=== PATIENT | female | born 1945 | race Caucasian/White ===

== ENCOUNTER 2017-07-30 16:47 | Inpatient (IN) | payer MEDICARE ==
[~2017-07-30] VITALS: Ht 177.8 cm; Wt 70.9 kg
[~2017-07-30 16:47] MED LIST: LIDOcaine 2% (20 mg/ml) 5ml cardiac syringe ONE; MAGNESIUM SULFATE 4 MEQ/ML (1gm/2ml) injection ONE; albumin (human) 25% 100 ML IV solution IV ONE; calcium chloride 100 MG/1 ML inj IV ONE; heparin 1,000 units/ml 10ml inj ONE; heparin 10,000 units/1 ML INJ ONE; methylPREDNISolone sod. succ. 500mg inj ONE; phenylephrine 10mg/ml inj IV ONE; potassium acetate 2 mEq/1ml inj. IV ONE; sodium bicarbonate (8.4%) 1 mEq/ml syringe ONE
[2017-07-30 17:00] VITALS: BP 129/76
[2017-07-30 18:23] LABS: HEMATOCRIT 30.7 % (35.0-45.0); MEAN CORPUSCULAR HEMOGLOBIN 24.1 PG (27.0-31.0); MEAN CORPUSCULAR HGB CONC 32.6 % (33.0-36.5); MEAN CORPUSCULAR VOLUME 74.1 FL (78-98); MEAN PLATELET VOLUME 7.1 FL (7.4-10.4); PLATELET COUNT 343 X10'3 (140-440); RED BLOOD COUNT 4.14 X10'6 (4.20-5.60); WHITE BLOOD COUNT 11.4 X10'3 (4.5-11.0)
[2017-07-30 18:33] LABS: INR 1.1 INR; PARTIAL THROMBOPLASTIN TIME 34 SECONDS (22-32); PROTHROMBIN TIME 11.7 SECONDS (9.0-12.0)
[2017-07-30 18:38] LABS: ALANINE AMINOTRANSFERASE 23 U/L (12-78); ALBUMIN 1.9 G/DL (3.4-5.0); ALBUMIN/GLOBULIN RATIO 0.4 (1.1-1.5); ALKALINE PHOSPHATASE 99 IU/L (46-116); ANION GAP 8 (8-16); ASPARTATE AMINO TRANSFERASE 19 U/L (10-37); BILIRUBIN,TOTAL 0.3 MG/DL (0.1-1.0); BLOOD UREA NITROGEN 8 MG/DL (7-18); BUN/CREATININE RATIO 11.1 (6.6-38.0); CALCIUM 8.5 MG/DL (8.5-10.1); CHLORIDE 104 MMOL/L (99-107); CREATININE 0.72 MG/DL (0.40-0.90); GLUCOSE 93 MG/DL (70-104); POTASSIUM 3.5 MMOL/L (3.5-5.1); SODIUM 139 MMOL/L (135-145); TOTAL CARBON DIOXIDE 26.6 MMOL/L (24-32); TOTAL PROTEIN 6.5 G/DL (6.4-8.2); eGFR 80 ML/MIN
[2017-07-30 18:39] LABS: HEMOGLOBIN A1C 5.9 % (4.5-6.2)
[2017-07-30 19:00] VITALS: BP 128/70
[2017-07-30] MEDS ORDERED: DOXY-200 PO (22:09)
[2017-07-30] MEDS ORDERED: LEVO750T21 PO (22:09)
[2017-07-30] MEDS ORDERED: TRIA1TAB3 PO (22:15)
[2017-07-30] MEDS ORDERED: METO-384 PO (22:15)
[2017-07-30] MEDS ORDERED: diphenhydrAMINE 25mg capsule PO PRN (22:50)
[2017-07-30] MEDS ORDERED: acetaminophen 650mg rectal suppository RC PRN (22:50)
[2017-07-30] MEDS ORDERED: metoclopramide 5 mg/ml inj IV PRN (22:50)
[2017-07-30] MEDS ORDERED: bisacodyl 10mg suppository rectal RC PRN (22:50)
[2017-07-30] MEDS ORDERED: diphenhydrAMINE 50 mg/ml inj IV PRN (22:50)
[2017-07-30] MEDS ORDERED: morphine 4 MG/ML inj SYRINge IV PRN (22:50)
[2017-07-30] MEDS ORDERED: HYDROmorphone inj. 0.5 MG/0.5 ML DISP.SYRIN IV PRN ×2 (22:50)
[2017-07-30] MEDS ORDERED: ondansetron/PF 4mg/2ml inj IV PRN (22:50)
[2017-07-30] MEDS ORDERED: magnesium hydroxide 30ml (MOM) UD suspension PO PRN (22:50)
[2017-07-30] MEDS ORDERED: acetaminophen 325mg tablet PO PRN ×2 (22:50)
[2017-07-30] MEDS ORDERED: HYDROcodone/acetaminophen 10/325mg tab PO PRN (22:50)
[2017-07-30] MEDS ORDERED: mag hydrox/Alum hydrox/simeth 30ml oral suspension PO PRN (22:50)
[2017-07-30 23:00] VITALS: BP 145/71
[2017-07-30] MEDS: normal saline 1000ml 1,000 ML IV SCH (23:49)
[2017-07-30] MEDS: azithromycin/NS 500mg/250ml 250 ML IV SCH (23:50)
[2017-07-30] MEDS: CefTRIAXone/D5W-Rocephin 1gm 50 ML IV SCH (23:51)
[2017-07-31] VITALS (11 sets, daily range): BP systolic 96–140; BP diastolic 48–88
[2017-07-31 00:11] LABS: MAGNESIUM 1.7 MG/DL (1.5-2.4); PHOSPHORUS 2.5 MG/DL (2.3-4.5)
[2017-07-31 06:35] LABS: BASOPHILS % (AUTO) 0.3 % (0-1); EOSINOPHILS # (AUTO) 0.2 X10'3 (0-0.9); EOSINOPHILS % (AUTO) 2.3 % (0-6); HEMATOCRIT 28.4 % (35.0-45.0); HEMOGLOBIN 9.4 g/dl (12.0-16.0); LYMPHOCYTES # (AUTO) 1.4 X10'3 (1.1-4.8); LYMPHOCYTES % (AUTO) 13.3 % (21-51); MEAN CORPUSCULAR HEMOGLOBIN 24.5 PG (27.0-31.0); MEAN CORPUSCULAR HGB CONC 33.1 % (33.0-36.5); MEAN CORPUSCULAR VOLUME 74.1 FL (78-98); MEAN PLATELET VOLUME 7.3 FL (7.4-10.4); MONOCYTES # (AUTO) 0.8 X10'3 (0-0.9); MONOCYTES % (AUTO) 7.7 % (2-12); NEUTROPHILS # (AUTO) 8.2 X10'3 (1.8-7.7); NEUTROPHILS % (AUTO) 76.4 % (42-75); PLATELET COUNT 325 X10'3 (140-440); RED BLOOD COUNT 3.83 X10'6 (4.20-5.60); RED CELL DISTRIBUTION WIDTH 23.9 % (11.5-14.5); WHITE BLOOD COUNT 10.8 X10'3 (4.5-11.0)
[2017-07-31 07:07] LABS: ALANINE AMINOTRANSFERASE 24 U/L (12-78); ALBUMIN 1.8 G/DL (3.4-5.0); ALBUMIN/GLOBULIN RATIO 0.4 (1.1-1.5); ALKALINE PHOSPHATASE 83 IU/L (46-116); ANION GAP 8 (8-16); ASPARTATE AMINO TRANSFERASE 20 U/L (10-37); BILIRUBIN,TOTAL 0.3 MG/DL (0.1-1.0); BLOOD UREA NITROGEN 11 MG/DL (7-18); BUN/CREATININE RATIO 17.2 (6.6-38.0); CALCIUM 8.3 MG/DL (8.5-10.1); CHLORIDE 106 MMOL/L (99-107); CREATININE 0.64 MG/DL (0.40-0.90); GLUCOSE 89 MG/DL (70-104); POTASSIUM 3.3 MMOL/L (3.5-5.1); SODIUM 140 MMOL/L (135-145); TOTAL CARBON DIOXIDE 26.3 MMOL/L (24-32); TOTAL PROTEIN 6.4 G/DL (6.4-8.2); eGFR > 90 ML/MIN
[2017-07-31] MEDS: CefTRIAXone/D5W-Rocephin 1gm 50 ML IV SCH ×2 (07:09→19:18)
[2017-07-31] MEDS: pantoprazole 40 MG vial IV SCH (07:09)
[2017-07-31] MEDS: metoprolol succinate 25mg (24-HOUR) SR. Tablet PO SCH (07:09)
[2017-07-31] MEDS: heparin, porcine 5000 units/ml vial SQ SCH ×2 (08:00→19:18)
[2017-07-31] MEDS: docusate sod 100mg capsule PO SCH ×2 (08:00→19:16)
[2017-07-31] MEDS ORDERED: magnesium 4gm in 100ml NS 100 ML IV PRN (08:35)
[2017-07-31] MEDS ORDERED: magnesium Cl slow-release 64mg tablet PO PRN (08:35)
[2017-07-31] MEDS ORDERED: potassium Cl 40MEQ/NS 500ml 500 ML IV PRN ×2 (08:35)
[2017-07-31] MEDS ORDERED: magnesium 2GM in 50ml NS 50 ML IV PRN (08:35)
[2017-07-31] MEDS ORDERED: potassium Cl 20 mEq SR tablet PO PRN (08:35)
[2017-07-31] MEDS: normal saline 1000ml 1,000 ML IV SCH (08:57)
[2017-07-31] MEDS ORDERED: albuterol 2.5 MG/3 ML nebule NEB ONE (12:35)
[2017-07-31] MEDS ORDERED: albuterol 2.5 MG/3 ML nebule ONE (12:41)
[2017-07-31] MEDS ORDERED: heparin 1,000 UNITS/NS 500ml 500 ML ONE (13:41)
[2017-07-31] MEDS ORDERED: iohexol 350MG/ML 100ml bottle IV ONE (13:41)
[2017-07-31] MEDS ORDERED: nitroGLYCERIN-Tridil 50MG/D5W 250 ML IV ONE (13:41)
[2017-07-31] MEDS ORDERED: heparin 1,000unit/ml 10ml vial 10 ML ONE (13:41)
[2017-07-31] MEDS ORDERED: LIDOcaine 1%/PF (10mg/ml) 5ml vial ONE (13:41)
[2017-07-31] MEDS ORDERED: iohexol 350 MG/ML 50ML vial IV ONE (13:41)
[2017-07-31] MEDS ORDERED: midazolam 2 mg/2 ml injection ONE (14:05)
[2017-07-31] MEDS ORDERED: fentaNYL/PF 50MCG/1 ML 2ML syringe ONE (14:06)
[2017-07-31] MEDS ORDERED: normal saline 1000ml 1,000 ML IV SCH (16:37)
[2017-07-31] MEDS: HYDROcodone/acetaminophen 5mg/325mg tablet PO PRN (16:43)
[2017-07-31] MEDS: potassium Cl 20 mEq SR tablet PO PRN (19:16)
[2017-07-31] MEDS: azithromycin/NS 500mg/250ml 250 ML IV SCH (21:18)
[2017-07-31] MEDS: temazepam 15mg capsule PO PRN (21:42)
[2017-08-01 06:00] VITALS: BP 141/79
[2017-08-01 06:08] LABS: BASOPHILS % (AUTO) 0.2 % (0-1); EOSINOPHILS # (AUTO) 0.3 X10'3 (0-0.9); EOSINOPHILS % (AUTO) 2.6 % (0-6); HEMATOCRIT 29.7 % (35.0-45.0); HEMOGLOBIN 9.7 g/dl (12.0-16.0); LYMPHOCYTES # (AUTO) 1.2 X10'3 (1.1-4.8); LYMPHOCYTES % (AUTO) 10.9 % (21-51); MEAN CORPUSCULAR HEMOGLOBIN 24.4 PG (27.0-31.0); MEAN CORPUSCULAR HGB CONC 32.5 % (33.0-36.5); MEAN CORPUSCULAR VOLUME 74.9 FL (78-98); MONOCYTES # (AUTO) 0.8 X10'3 (0-0.9); MONOCYTES % (AUTO) 7.1 % (2-12); NEUTROPHILS # (AUTO) 8.7 X10'3 (1.8-7.7); NEUTROPHILS % (AUTO) 79.2 % (42-75); PLATELET COUNT 343 X10'3 (140-440); RED BLOOD COUNT 3.97 X10'6 (4.20-5.60)
[2017-08-01 06:27] LABS: ALANINE AMINOTRANSFERASE 25 U/L (12-78); ALBUMIN 1.8 G/DL (3.4-5.0); ALBUMIN/GLOBULIN RATIO 0.4 (1.1-1.5); ALKALINE PHOSPHATASE 83 IU/L (46-116); ANION GAP 9 (8-16); ASPARTATE AMINO TRANSFERASE 17 U/L (10-37); BILIRUBIN,TOTAL 0.4 MG/DL (0.1-1.0); BLOOD UREA NITROGEN 10 MG/DL (7-18); BUN/CREATININE RATIO 14.5 (6.6-38.0); CALCIUM 8.7 MG/DL (8.5-10.1); CHLORIDE 107 MMOL/L (99-107); CREATININE 0.69 MG/DL (0.40-0.90); GLUCOSE 83 MG/DL (70-104); MAGNESIUM 1.7 MG/DL (1.5-2.4); POTASSIUM 3.5 MMOL/L (3.5-5.1); SODIUM 142 MMOL/L (135-145); TOTAL CARBON DIOXIDE 25.7 MMOL/L (24-32); TOTAL PROTEIN 6.5 G/DL (6.4-8.2); eGFR 84 ML/MIN
[2017-08-01] MEDS: pantoprazole 40 MG vial IV SCH (07:42)
[2017-08-01] MEDS: docusate sod 100mg capsule PO SCH ×2 (07:42→20:04)
[2017-08-01] MEDS: metoprolol succinate 25mg (24-HOUR) SR. Tablet PO SCH (07:42)
[2017-08-01] MEDS: CefTRIAXone/D5W-Rocephin 1gm 50 ML IV SCH ×2 (07:42→20:06)
[2017-08-01] MEDS: heparin, porcine 5000 units/ml vial SQ SCH ×2 (07:44→20:05)
[2017-08-01 11:00] VITALS: BP 145/83
[2017-08-01] MEDS ORDERED: ringers solution, lacted 1,000 ML IV ONE (11:37)
[2017-08-01 15:00] VITALS: BP 144/75
[2017-08-01] MEDS: azithromycin 250mg tablet PO SCH (17:21)
[2017-08-01 19:00] VITALS: BP 147/84
[2017-08-01] MEDS: lactobacillus rhamnosus 10,000 MMU CELLS/CAPSULE PO SCH (20:04)
[2017-08-01] MEDS: temazepam 15mg capsule PO PRN (20:11)
[2017-08-01 23:00] VITALS: BP 139/52
[2017-08-02] VITALS (7 sets, daily range): BP systolic 135–156; BP diastolic 74–83
[2017-08-02 05:38] LABS: BASOPHILS # (AUTO) 0.1 X10'3 (0-0.2); BASOPHILS % (AUTO) 0.5 % (0-1); EOSINOPHILS # (AUTO) 0.3 X10'3 (0-0.9); EOSINOPHILS % (AUTO) 2.6 % (0-6); HEMATOCRIT 29.1 % (35.0-45.0); HEMOGLOBIN 9.7 g/dl (12.0-16.0); LYMPHOCYTES # (AUTO) 1.7 X10'3 (1.1-4.8); MEAN CORPUSCULAR HEMOGLOBIN 24.7 PG (27.0-31.0); MEAN CORPUSCULAR HGB CONC 33.3 % (33.0-36.5); MEAN CORPUSCULAR VOLUME 74.1 FL (78-98); MEAN PLATELET VOLUME 7.5 FL (7.4-10.4); MONOCYTES # (AUTO) 0.7 X10'3 (0-0.9); MONOCYTES % (AUTO) 5.5 % (2-12); NEUTROPHILS # (AUTO) 9.4 X10'3 (1.8-7.7); NEUTROPHILS % (AUTO) 77.4 % (42-75); PLATELET COUNT 389 X10'3 (140-440); RED BLOOD COUNT 3.93 X10'6 (4.20-5.60); RED CELL DISTRIBUTION WIDTH 23.7 % (11.5-14.5); WHITE BLOOD COUNT 12.2 X10'3 (4.5-11.0)
[2017-08-02 05:51] LABS: ALANINE AMINOTRANSFERASE 24 U/L (12-78); ALBUMIN 1.9 G/DL (3.4-5.0); ALBUMIN/GLOBULIN RATIO 0.4 (1.1-1.5); ALKALINE PHOSPHATASE 88 IU/L (46-116); ANION GAP 9 (8-16); ASPARTATE AMINO TRANSFERASE 19 U/L (10-37); BILIRUBIN,TOTAL 0.4 MG/DL (0.1-1.0); BLOOD UREA NITROGEN 11 MG/DL (7-18); BUN/CREATININE RATIO 15.5 (6.6-38.0); CALCIUM 8.8 MG/DL (8.5-10.1); CHLORIDE 106 MMOL/L (99-107); CREATININE 0.71 MG/DL (0.40-0.90); GLUCOSE 84 MG/DL (70-104); MAGNESIUM 1.8 MG/DL (1.5-2.4); POTASSIUM 3.2 MMOL/L (3.5-5.1); SODIUM 143 MMOL/L (135-145); TOTAL CARBON DIOXIDE 28.5 MMOL/L (24-32); TOTAL PROTEIN 6.7 G/DL (6.4-8.2); eGFR 81 ML/MIN
[2017-08-02] MEDS: lactobacillus rhamnosus 10,000 MMU CELLS/CAPSULE PO SCH ×2 (07:41→20:22)
[2017-08-02] MEDS: potassium Cl 20 mEq SR tablet PO PRN ×3 (07:42→20:39)
[2017-08-02] MEDS: metoprolol succinate 25mg (24-HOUR) SR. Tablet PO SCH (07:42)
[2017-08-02] MEDS: pantoprazole 40mg Tablet.DR PO SCH (07:42)
[2017-08-02] MEDS: docusate sod 100mg capsule PO SCH ×2 (07:42→20:22)
[2017-08-02] MEDS: azithromycin 250mg tablet PO SCH (07:42)
[2017-08-02] MEDS: CefTRIAXone/D5W-Rocephin 1gm 50 ML IV SCH ×2 (07:42→20:22)
[2017-08-02] MEDS: heparin, porcine 5000 units/ml vial SQ SCH (08:00)
[2017-08-02 08:36] LABS: CLARITY,URINE CLEAR (Clear); COLOR,URINE YELLOW (Yellow); GLUCOSE, URINE NEGATIVE (Neg); KETONES,URINE NEGATIVE (Neg); LEUKOCYTE ESTERASE ,URINE NEGATIVE (Neg); NITRITES, URINE NEGATIVE (Neg); OCCULT BLOOD,URINE SMALL (Neg); PH,URINE 6.5 (4.8-8.0); PROTEIN,URINE TRACE mg/dl (Neg); UROBILINOGEN,URINE 0.2 E.U/dL (0.2-1.0)
[2017-08-02 08:40] LABS: UA COLLECTION TYPE VOIDED
[2017-08-02 08:41] LABS: BACTERIA,URINE FEW /HPF (Neg); SQUAMOUS EPITHELIAL CELL,UR FEW /LPF (FEW); WBC,URINE 0-4 /HPF (0-4)
[2017-08-02] MEDS ORDERED: ringers solution, lacted 1,000 ML IV SCH (10:27)
[2017-08-02] MEDS ORDERED: MESSAGE TO NURSING PO ONE ×3 (10:30)
[2017-08-02 16:56] LABS: ABG BASE EXCESS -0.4 mmol/L (-2.0-3.0); ABG HCO3 22.2 mmol/L (22.0-26.0); ABG PCO2 (T) 29.5 mmHg (32.0-45.0); ABG PH (T) 7.494 (7.350-7.450); ABG PO2 (T) 82.2 mmHg (83-108); ALLEN'S TEST Positive; FCOHb 0.5 % (0.5-1.5); FMetHb 0.3 % (0.3-1.12); FO2Hb 95.2 % (94-100); TOTAL HEMOGLOBIN 10.6 G/dl (12.0-16.0)
[2017-08-02] MEDS: mupirocin 2% ointment 22GM NS SCH (20:23)
[2017-08-03] VITALS (20 sets, daily range): BP systolic 106–164; BP diastolic 52–81
[2017-08-03 05:29] LABS: BASOPHILS % (AUTO) 0.4 % (0-1); EOSINOPHILS # (AUTO) 0.3 X10'3 (0-0.9); EOSINOPHILS % (AUTO) 2.8 % (0-6); HEMATOCRIT 31.9 % (35.0-45.0); HEMOGLOBIN 10.4 g/dl (12.0-16.0); LYMPHOCYTES # (AUTO) 1.6 X10'3 (1.1-4.8); LYMPHOCYTES % (AUTO) 13.1 % (21-51); MEAN CORPUSCULAR HEMOGLOBIN 24.7 PG (27.0-31.0); MEAN CORPUSCULAR HGB CONC 32.7 % (33.0-36.5); MEAN CORPUSCULAR VOLUME 75.6 FL (78-98); MEAN PLATELET VOLUME 6.9 FL (7.4-10.4); MONOCYTES # (AUTO) 0.8 X10'3 (0-0.9); MONOCYTES % (AUTO) 6.9 % (2-12); NEUTROPHILS # (AUTO) 9.1 X10'3 (1.8-7.7); NEUTROPHILS % (AUTO) 76.8 % (42-75); PLATELET COUNT 461 X10'3 (140-440); RED BLOOD COUNT 4.22 X10'6 (4.20-5.60); WHITE BLOOD COUNT 11.9 X10'3 (4.5-11.0)
[2017-08-03] MEDS ORDERED: vancomycin/NS 1 GM ADD-VANTAGE 250 ML IV ONE (05:30)
[2017-08-03] MEDS ORDERED: cefazolin/dext.iso 2gm/50ml 50 ML IV ONE (05:30)
[2017-08-03] MEDS ORDERED: dextrose 50%-water 50ml dispensing syringe IV PRN (05:30)
[2017-08-03] MEDS ORDERED: insulin R INFUSION 1 ML IV ONE (05:33)
[2017-08-03 05:43] LABS: INR 1.1 INR; PROTHROMBIN TIME 11.6 SECONDS (9.0-12.0)
[2017-08-03] MEDS ORDERED: famotidine 20mg tablet PO ONE ×2 (06:00→06:40)
[2017-08-03] MEDS ORDERED: LORazepam 2 mg/ml vial IV ONE (06:00)
[2017-08-03 06:13] LABS: ALANINE AMINOTRANSFERASE 22 U/L (12-78); ALBUMIN/GLOBULIN RATIO 0.4 (1.1-1.5); ALKALINE PHOSPHATASE 91 IU/L (46-116); ANION GAP 9 (8-16); ASPARTATE AMINO TRANSFERASE 18 U/L (10-37); BILIRUBIN,TOTAL 0.5 MG/DL (0.1-1.0); BLOOD UREA NITROGEN 8 MG/DL (7-18); BUN/CREATININE RATIO 11.8 (6.6-38.0); CALCIUM 9.4 MG/DL (8.5-10.1); CHLORIDE 107 MMOL/L (99-107); CREATININE 0.68 MG/DL (0.40-0.90); GLUCOSE 87 MG/DL (70-104); MAGNESIUM 1.9 MG/DL (1.5-2.4); POTASSIUM 3.7 MMOL/L (3.5-5.1); SODIUM 143 MMOL/L (135-145); TOTAL CARBON DIOXIDE 26.6 MMOL/L (24-32); TOTAL PROTEIN 7.1 G/DL (6.4-8.2); eGFR 86 ML/MIN
[2017-08-03] MEDS ORDERED: SUFENTANIL CITRATE 50 MCG/ML 2ml ampule IV ONE (06:59)
[2017-08-03] MEDS ORDERED: MIDAZolam 1mg/ml 10ml vial ONE (06:59)
[2017-08-03] MEDS ORDERED: isoflurane 100ml inhalation liquid IH ONE (07:00)
[2017-08-03] MEDS ORDERED: protamine sulf. 10mg/ml inj. IV ONE (07:00)
[2017-08-03] MEDS ORDERED: rocuronium 10mg/ml inj IV ONE ×2 (07:01)
[2017-08-03] MEDS ORDERED: etomidate 2mg/ml inj. ONE (07:02)
[2017-08-03] MEDS ORDERED: LIDOcaine 2% (20mg/ml) 5ml vial ONE (07:02)
[2017-08-03] MEDS: pantoprazole 40mg Tablet.DR PO SCH (07:30)
[2017-08-03 07:40] LABS: ABG BASE EXCESS 2.1 mmol/L (-2.0-3.0); ABG OXYGEN SATURATION 99.8 % (95-98); ABG PCO2 32.7 mmHg (35.0-45.0); ABG PH 7.501 (7.350-7.450); ABG PO2 332.9 mmHg (60.0-100.0); CL (ABG) 107 mmol/L (99-107); FCOHb 0.4 % (0.5-1.5); FMetHb 0.1 % (0.3-1.12); FO2Hb 99.3 % (94-100); GLUCOSE (ABG) 91 mg/dl (70-105); IONIZED CA (ABG) 1.19 mmol/L (1.03-1.32); K (ABG) 3.5 mmol/L (3.3-5.1); NA (ABG) 140 mmol/L (135-145)
[2017-08-03] MEDS: lactobacillus rhamnosus 10,000 MMU CELLS/CAPSULE PO SCH ×2 (08:00→20:00)
[2017-08-03] MEDS: metoprolol succinate 25mg (24-HOUR) SR. Tablet PO SCH (08:00)
[2017-08-03] MEDS: CefTRIAXone/D5W-Rocephin 1gm 50 ML IV SCH (08:00)
[2017-08-03] MEDS: docusate sod 100mg capsule PO SCH ×2 (08:00→20:00)
[2017-08-03] MEDS: azithromycin 250mg tablet PO SCH (08:00)
[2017-08-03] MEDS: mupirocin 2% ointment 22GM NS SCH ×3 (08:00→22:50)
[2017-08-03] MEDS ORDERED: NORMAL SALINE IV ONE (08:30)
[2017-08-03] MEDS ORDERED: TRANEXAMIC ACID IV ONE (08:30)
[2017-08-03 08:51] LABS: ABG HCO3 28.6 mmol/L (22.0-26.0); ABG OXYGEN SATURATION 99.7 % (95-98); ABG PCO2 37.4 mmHg (35.0-45.0); ABG PH 7.501 (7.350-7.450); ABG PO2 552.3 mmHg (60.0-100.0); CL (ABG) 108 mmol/L (99-107); FCOHb 1.5 % (0.5-1.5); FMetHb 0.3 % (0.3-1.12); FO2Hb 97.9 % (94-100); GLUCOSE (ABG) 108 mg/dl (70-105); IONIZED CA (ABG) 1.08 mmol/L (1.03-1.32); K (ABG) 4.8 mmol/L (3.3-5.1); NA (ABG) 138 mmol/L (135-145); TOTAL HEMOGLOBIN 7.1 G/dl (12.0-16.0)
[2017-08-03] MEDS ORDERED: ipratropium/albuterol 3ml nebule IH PRN (08:55)
[2017-08-03 09:00] LABS: ABG BASE EXCESS VENOUS 3.8 mmol/L; ABG HCO3 VENOUS 27.9 mmol/L; ABG PO2 VENOUS 46.6 mmHg; CL (ABG) 107 mmol/L (99-107); FCOHb VENOUS 0.7 %; FHHb VENOUS 20.1 %; FMetHb VENOUS 0.7 %; FO2Hb VENOUS 78.5 %; GLUCOSE (ABG) 111 mg/dl (70-105); IONIZED CA (ABG) 1.09 mmol/L (1.03-1.32); K (ABG) 4.4 mmol/L (3.3-5.1); NA (ABG) 138 mmol/L (135-145); TOTAL HEMOGLOBIN 7.3 G/dl (12.0-16.0)
[2017-08-03] MEDS: insulin Lispro (HumaLOG) vial - multi-dose SQ SCH ×3 (09:00→17:38)
[2017-08-03 09:16] LABS: ACT @ 1.70 U 307 SEC (193-297); ACT @ 2.84 U 431 SEC (260-420); BASELINE ACT 171 SEC (101-148); PATIENT WEIGHT 73.0k KG
[2017-08-03 09:26] LABS: ABG BASE EXCESS 6.1 mmol/L (-2.0-3.0); ABG HCO3 29.1 mmol/L (22.0-26.0); ABG OXYGEN SATURATION 99.5 % (95-98); ABG PCO2 34.9 mmHg (35.0-45.0); ABG PH 7.539 (7.350-7.450); ABG PO2 536.4 mmHg (60.0-100.0); CL (ABG) 106 mmol/L (99-107); FCOHb 0.4 % (0.5-1.5); FMetHb 0.9 % (0.3-1.12); FO2Hb 98.2 % (94-100); GLUCOSE (ABG) 121 mg/dl (70-105); IONIZED CA (ABG) 1.41 mmol/L (1.03-1.32); K (ABG) 4.5 mmol/L (3.3-5.1); NA (ABG) 138 mmol/L (135-145)
[2017-08-03 09:41] LABS: ISTAT HGB ART 8.8 g/dl (12.0-16.0); ISTAT Hct ART 26 %PCV (35-48); ISTAT O2 SATURATION ARTERIAL 92 % (95-98); ISTAT SOURCE ART
[2017-08-03 09:41] LABS: ISTAT Hct MIX 26 %PCV (35-48); ISTAT O2 SATURATION MIX VENOUS 70 % (60-80); ISTAT SOURCE MIX
[2017-08-03] MEDS ORDERED: MESSAGE TO NURSING PO ONE (10:00)
[2017-08-03 10:06] LABS: ABG BASE EXCESS VENOUS 2.8 mmol/L; ABG HCO3 VENOUS 27.9 mmol/L; ABG PCO2 VENOUS 45.7 mmHg; ABG PO2 VENOUS 43.5 mmHg; CL (ABG) 108 mmol/L (99-107); FHHb VENOUS 28.2 %; FMetHb VENOUS 0.9 %; FO2Hb VENOUS 70.9 %; GLUCOSE (ABG) 123 mg/dl (70-105); IONIZED CA (ABG) 1.26 mmol/L (1.03-1.32); K (ABG) 4.1 mmol/L (3.3-5.1); NA (ABG) 140 mmol/L (135-145); TOTAL HEMOGLOBIN 8.5 G/dl (12.0-16.0)
[2017-08-03 10:51] LABS: ABG BASE EXCESS 1.1 mmol/L (-2.0-3.0); ABG HCO3 24.8 mmol/L (22.0-26.0); ABG OXYGEN SATURATION 97.1 % (95-98); ABG PCO2 (T) 33.9 mmHg (32.0-45.0); ABG PH (T) 7.478 (7.350-7.450); ABG PO2 (T) 94.8 mmHg (83-108); FCOHb 0.3 % (0.5-1.5); FMetHb 0.1 % (0.3-1.12); FO2Hb 96.7 % (94-100); MINUTE VOLUME 8 L/min; PATIENT TEMPERATURE 36.1; PEEP 5 cm H2O; RESPIRATORY RATE 12 b/min; RESPIRATORY RATE (OBSERVED) 12 b/min; TIDAL VOLUME 600 mL; TOTAL HEMOGLOBIN 8.8 G/dl (12.0-16.0)
[2017-08-03 11:00] LABS: BASOPHILS % (AUTO) 0 % (0-1); EOSINOPHILS # (AUTO) 0.3 X10'3 (0-0.9); EOSINOPHILS % (AUTO) 1.8 % (0-6); HEMATOCRIT 24.7 % (35.0-45.0); HEMOGLOBIN 8.2 g/dl (12.0-16.0); LYMPHOCYTES # (AUTO) 0.9 X10'3 (1.1-4.8); LYMPHOCYTES % (AUTO) 5.2 % (21-51); MEAN CORPUSCULAR HEMOGLOBIN 24.8 PG (27.0-31.0); MEAN CORPUSCULAR HGB CONC 33.1 % (33.0-36.5); MEAN CORPUSCULAR VOLUME 74.8 FL (78-98); MEAN PLATELET VOLUME 6.6 FL (7.4-10.4); MONOCYTES # (AUTO) 0.5 X10'3 (0-0.9); MONOCYTES % (AUTO) 2.8 % (2-12); NEUTROPHILS # (AUTO) 16.4 X10'3 (1.8-7.7); NEUTROPHILS % (AUTO) 90.2 % (42-75); PLATELET COUNT 267 X10'3 (140-440); RED CELL DISTRIBUTION WIDTH 23.8 % (11.5-14.5); WHITE BLOOD COUNT 18.2 X10'3 (4.5-11.0)
[2017-08-03] MEDS: morphine 4 MG/ML inj SYRINge IV PRN ×6 (11:07→22:18)
[2017-08-03 11:13] LABS: INR 1.4 INR; PARTIAL THROMBOPLASTIN TIME 28 SECONDS (22-32); PROTHROMBIN TIME 14.3 SECONDS (9.0-12.0)
[2017-08-03 11:17] LABS: ALANINE AMINOTRANSFERASE 16 U/L (12-78); ALBUMIN 1.6 G/DL (3.4-5.0); ALBUMIN/GLOBULIN RATIO 0.5 (1.1-1.5); ALKALINE PHOSPHATASE 49 IU/L (46-116); ANION GAP 5 (8-16); ASPARTATE AMINO TRANSFERASE 27 U/L (10-37); BILIRUBIN,TOTAL 0.8 MG/DL (0.1-1.0); BLOOD UREA NITROGEN 9 MG/DL (7-18); BUN/CREATININE RATIO 13.2 (6.6-38.0); CALCIUM 8.5 MG/DL (8.5-10.1); CHLORIDE 111 MMOL/L (99-107); CREATININE 0.68 MG/DL (0.40-0.90); GLUCOSE 133 MG/DL (70-104); MAGNESIUM 2.8 MG/DL (1.5-2.4); POTASSIUM 4.1 MMOL/L (3.5-5.1); SODIUM 144 MMOL/L (135-145); TOTAL CARBON DIOXIDE 28.5 MMOL/L (24-32); TOTAL PROTEIN 4.6 G/DL (6.4-8.2); eGFR 86 ML/MIN
[2017-08-03] MEDS: insulin regular, human inj. 100 UNITS in normal saline 100ml IV soln 100 ML IV SCH ×12 (11:30→20:06)
[2017-08-03] MEDS ORDERED: morphine 4 MG/ML inj SYRINge IV PRN (12:05)
[2017-08-03] MEDS ORDERED: sodium chloride 0.45% 1,000 ML IV SCH (12:05)
[2017-08-03 12:54] LABS: PHOSPHORUS 3.6 MG/DL (2.3-4.5)
[2017-08-03 13:06] LABS: ACTIVATED CLOTTING TIME 154 SEC (101-148)
[2017-08-03 13:10] LABS: ABG OXYGEN SATURATION 93.8 % (95-98); ABG PCO2 (T) 36.7 mmHg (32.0-45.0); ABG PO2 (T) 66.8 mmHg (83-108); ALLEN'S TEST Positive; FCOHb 0.3 % (0.5-1.5); FMetHb 0.1 % (0.3-1.12); FO2Hb 93.4 % (94-100); TOTAL HEMOGLOBIN 10.4 G/dl (12.0-16.0)
[2017-08-03] MEDS ORDERED: magnesium 2GM in 50ml NS 50 ML IV PRN (13:15)
[2017-08-03] MEDS ORDERED: potassium Cl 20mEq/100mL bag 100 ML IV PRN ×3 (13:15)
[2017-08-03] MEDS ORDERED: sodium phosphate inj. 30 MMOL in dextrose 5%-water 250 ML IV PRN (13:15)
[2017-08-03] MEDS ORDERED: Neutra Phos packet PO PRN (13:15)
[2017-08-03] MEDS ORDERED: magnesium 4gm in 100ml NS 100 ML IV PRN (13:15)
[2017-08-03] MEDS ORDERED: sodium phosphate inj. 15 MMOL in dextrose 5%-water 150 ML IV PRN (13:15)
[2017-08-03] MEDS ORDERED: potassium Cl 20mEq/100mL bag 100 ML IV ONE (13:17)
[2017-08-03 15:13] LABS: TOTAL HEMOGLOBIN 6.8 G/dl (12.0-16.0)
[2017-08-03 15:51] LABS: ABG BASE EXCESS 3.8 mmol/L (-2.0-3.0); ABG HCO3 27.8 mmol/L (22.0-26.0); ABG OXYGEN SATURATION 95.4 % (95-98); ABG PCO2 (T) 38.7 mmHg (32.0-45.0); ABG PH (T) 7.472 (7.350-7.450); ABG PO2 (T) 77.5 mmHg (83-108); FCOHb 0.2 % (0.5-1.5); FMetHb 0.2 % (0.3-1.12); MINUTE VOLUME 9 L/min; PATIENT TEMPERATURE 36.4; PEEP 5 cm H2O; RESPIRATORY RATE (OBSERVED) 15 b/min; TOTAL HEMOGLOBIN 9.9 G/dl (12.0-16.0)
[2017-08-03 16:57] LABS: ALBUMIN 1.9 G/DL (3.4-5.0); ANION GAP 7 (8-16); BASOPHILS % (AUTO) 0 % (0-1); BLOOD UREA NITROGEN 11 MG/DL (7-18); BUN/CREATININE RATIO 14.1 (6.6-38.0); CALCIUM 8.7 MG/DL (8.5-10.1); CHLORIDE 110 MMOL/L (99-107); CREATININE 0.78 MG/DL (0.40-0.90); EOSINOPHILS # (AUTO) 0.3 X10'3 (0-0.9); EOSINOPHILS % (AUTO) 1.5 % (0-6); GLUCOSE 125 MG/DL (70-104); HEMATOCRIT 28.4 % (35.0-45.0); HEMOGLOBIN 9.2 g/dl (12.0-16.0); LYMPHOCYTES # (AUTO) 0.6 X10'3 (1.1-4.8); LYMPHOCYTES % (AUTO) 3.1 % (21-51); MEAN CORPUSCULAR HEMOGLOBIN 24.3 PG (27.0-31.0); MEAN CORPUSCULAR HGB CONC 32.2 % (33.0-36.5); MEAN CORPUSCULAR VOLUME 75.4 FL (78-98); MEAN PLATELET VOLUME 6.9 FL (7.4-10.4); MONOCYTES # (AUTO) 0.3 X10'3 (0-0.9); MONOCYTES % (AUTO) 1.5 % (2-12); NEUTROPHILS # (AUTO) 19.8 X10'3 (1.8-7.7); NEUTROPHILS % (AUTO) 93.9 % (42-75); PLATELET COUNT 334 X10'3 (140-440); POTASSIUM 4.1 MMOL/L (3.5-5.1); RED BLOOD COUNT 3.77 X10'6 (4.20-5.60); RED CELL DISTRIBUTION WIDTH 24.8 % (11.5-14.5); SODIUM 145 MMOL/L (135-145); TOTAL CARBON DIOXIDE 27.6 MMOL/L (24-32); WHITE BLOOD COUNT 21.1 X10'3 (4.5-11.0); eGFR 73 ML/MIN
[2017-08-03] MEDS: ceFAZolin 1GM/D5W- ADD-VANTAGE 50 ML IV SCH ×2 (17:32→23:44)
[2017-08-03] MEDS: vancomycin/NS 1 GM ADD-VANTAGE 250 ML IV SCH (20:05)
[2017-08-03] MEDS ORDERED: niCARDipine/sod cl 20mg/200ml 200 ML IV PRN (22:33)
[2017-08-03] MEDS ORDERED: niCARDipine/sod cl 20mg/200ml 200 ML IV ONE (22:43)
[2017-08-04] VITALS (24 sets, daily range): BP systolic 122–154; BP diastolic 48–84
[2017-08-04] MEDS: morphine 4 MG/ML inj SYRINge IV PRN (00:07)
[2017-08-04] MEDS: insulin regular, human inj. 100 UNITS in normal saline 100ml IV soln 100 ML IV SCH ×8 (01:00→06:09)
[2017-08-04 03:23] LABS: BASOPHILS % (AUTO) 0 % (0-1); EOSINOPHILS # (AUTO) 0.4 X10'3 (0-0.9); EOSINOPHILS % (AUTO) 1.8 % (0-6); HEMATOCRIT 27.1 % (35.0-45.0); HEMOGLOBIN 8.9 g/dl (12.0-16.0); LYMPHOCYTES # (AUTO) 1.1 X10'3 (1.1-4.8); LYMPHOCYTES % (AUTO) 4.9 % (21-51); MEAN CORPUSCULAR HEMOGLOBIN 24.8 PG (27.0-31.0); MEAN CORPUSCULAR HGB CONC 32.8 % (33.0-36.5); MEAN CORPUSCULAR VOLUME 75.5 FL (78-98); MEAN PLATELET VOLUME 6.8 FL (7.4-10.4); MONOCYTES # (AUTO) 0.5 X10'3 (0-0.9); MONOCYTES % (AUTO) 2.3 % (2-12); NEUTROPHILS # (AUTO) 20.2 X10'3 (1.8-7.7); PLATELET COUNT 325 X10'3 (140-440); RED BLOOD COUNT 3.59 X10'6 (4.20-5.60); RED CELL DISTRIBUTION WIDTH 24.4 % (11.5-14.5); WHITE BLOOD COUNT 22.3 X10'3 (4.5-11.0)
[2017-08-04 03:36] LABS: ALANINE AMINOTRANSFERASE 20 U/L (12-78); ALBUMIN/GLOBULIN RATIO 0.5 (1.1-1.5); ALKALINE PHOSPHATASE 64 IU/L (46-116); ANION GAP 6 (8-16); ASPARTATE AMINO TRANSFERASE 38 U/L (10-37); BILIRUBIN,TOTAL 0.4 MG/DL (0.1-1.0); BLOOD UREA NITROGEN 16 MG/DL (7-18); BUN/CREATININE RATIO 21.1 (6.6-38.0); CALCIUM 8.4 MG/DL (8.5-10.1); CHLORIDE 110 MMOL/L (99-107); CREATININE 0.76 MG/DL (0.40-0.90); GLUCOSE 147 MG/DL (70-104); MAGNESIUM 2.2 MG/DL (1.5-2.4); POTASSIUM 3.8 MMOL/L (3.5-5.1); SODIUM 143 MMOL/L (135-145); TOTAL CARBON DIOXIDE 27.2 MMOL/L (24-32); TOTAL PROTEIN 5.8 G/DL (6.4-8.2); eGFR 75 ML/MIN
[2017-08-04] MEDS: HYDROcodone/acetaminophen 5mg/325mg tablet PO PRN (04:43)
[2017-08-04] MEDS: metoprolol succinate 25mg (24-HOUR) SR. Tablet PO SCH (07:43)
[2017-08-04] MEDS: ceFAZolin 1GM/D5W- ADD-VANTAGE 50 ML IV SCH ×2 (07:44→16:06)
[2017-08-04] MEDS: docusate sod 100mg capsule PO SCH ×2 (07:44→19:52)
[2017-08-04] MEDS: pantoprazole 40mg Tablet.DR PO SCH (07:44)
[2017-08-04] MEDS: mupirocin 2% ointment 22GM NS SCH (07:44)
[2017-08-04] MEDS: lactobacillus rhamnosus 10,000 MMU CELLS/CAPSULE PO SCH ×2 (07:44→19:52)
[2017-08-04] MEDS: insulin Lispro (HumaLOG) vial - multi-dose SQ SCH ×3 (08:40→18:00)
[2017-08-04] MEDS: vancomycin/NS 1 GM ADD-VANTAGE 250 ML IV SCH ×2 (08:40→19:52)
[2017-08-04] MEDS: temazepam 15mg capsule PO PRN (19:52)
[2017-08-05] VITALS (13 sets, daily range): BP systolic 133–159; BP diastolic 61–99
[2017-08-05] MEDS: ceFAZolin 1GM/D5W- ADD-VANTAGE 50 ML IV SCH (00:08)
[2017-08-05 03:39] LABS: BASOPHILS # (AUTO) 0.1 X10'3 (0-0.2); BASOPHILS % (AUTO) 0.3 % (0-1); EOSINOPHILS # (AUTO) 0.2 X10'3 (0-0.9); EOSINOPHILS % (AUTO) 0.8 % (0-6); HEMATOCRIT 25.8 % (35.0-45.0); HEMOGLOBIN 8.4 g/dl (12.0-16.0); LYMPHOCYTES # (AUTO) 1.3 X10'3 (1.1-4.8); LYMPHOCYTES % (AUTO) 4.3 % (21-51); MEAN CORPUSCULAR HEMOGLOBIN 24.7 PG (27.0-31.0); MEAN CORPUSCULAR HGB CONC 32.4 % (33.0-36.5); MEAN CORPUSCULAR VOLUME 76.4 FL (78-98); MONOCYTES # (AUTO) 1.2 X10'3 (0-0.9); MONOCYTES % (AUTO) 4.1 % (2-12); NEUTROPHILS # (AUTO) 26.5 X10'3 (1.8-7.7); NEUTROPHILS % (AUTO) 90.5 % (42-75); PLATELET COUNT 333 X10'3 (140-440); RED BLOOD COUNT 3.38 X10'6 (4.20-5.60)
[2017-08-05 03:46] LABS: WHITE BLOOD COUNT 29.3 X10'3 (4.5-11.0)
[2017-08-05 03:59] LABS: ALANINE AMINOTRANSFERASE 18 U/L (12-78); ALBUMIN/GLOBULIN RATIO 0.5 (1.1-1.5); ALKALINE PHOSPHATASE 74 IU/L (46-116); ANION GAP 7 (8-16); ASPARTATE AMINO TRANSFERASE 28 U/L (10-37); BILIRUBIN,TOTAL 0.2 MG/DL (0.1-1.0); BLOOD UREA NITROGEN 20 MG/DL (7-18); BUN/CREATININE RATIO 25.3 (6.6-38.0); CALCIUM 8.8 MG/DL (8.5-10.1); CHLORIDE 108 MMOL/L (99-107); CREATININE 0.79 MG/DL (0.40-0.90); GLUCOSE 117 MG/DL (70-104); MAGNESIUM 2.3 MG/DL (1.5-2.4); POTASSIUM 4.5 MMOL/L (3.5-5.1); SODIUM 142 MMOL/L (135-145); TOTAL CARBON DIOXIDE 27.2 MMOL/L (24-32); eGFR 72 ML/MIN
[2017-08-05 05:04] LABS: TOTAL CELLS COUNTED 100
[2017-08-05 05:05] LABS: ANISOCYTOSIS 3+; PLATELET ESTIMATE NORMAL
[2017-08-05] MEDS ORDERED: magnesium Cl slow-release 64mg tablet PO PRN (06:25)
[2017-08-05] MEDS ORDERED: potassium Cl 20 mEq SR tablet PO PRN ×2 (06:25)
[2017-08-05] MEDS ORDERED: magnesium 2GM in 50ml NS 50 ML IV PRN (06:25)
[2017-08-05] MEDS ORDERED: magnesium 4gm in 100ml NS 100 ML IV PRN (06:25)
[2017-08-05] MEDS ORDERED: potassium Cl 40MEQ/NS 500ml 500 ML IV PRN ×2 (06:25)
[2017-08-05] MEDS: potassium Cl 20 mEq SR tablet PO SCH ×2 (07:06→20:00)
[2017-08-05] MEDS: K and/or MAG REPLACEMENT MC SCH (07:06)
[2017-08-05] MEDS: magnesium Cl slow-release 64mg tablet PO SCH ×2 (07:07→20:00)
[2017-08-05] MEDS: insulin Lispro (HumaLOG) vial - multi-dose SQ SCH ×3 (07:07→18:00)
[2017-08-05] MEDS: lactobacillus rhamnosus 10,000 MMU CELLS/CAPSULE PO SCH ×2 (07:28→20:16)
[2017-08-05] MEDS: pantoprazole 40mg Tablet.DR PO SCH (07:28)
[2017-08-05] MEDS: docusate sod 100mg capsule PO SCH ×2 (07:28→20:16)
[2017-08-05] MEDS: metoprolol succinate 25mg (24-HOUR) SR. Tablet PO SCH (07:31)
[2017-08-05] MEDS: triamterene/HCTZ 37.5/25mg tablet PO SCH (08:45)
[2017-08-05] MEDS: temazepam 15mg capsule PO PRN (20:17)
[2017-08-06 03:00] VITALS: BP 140/74
[2017-08-06 05:29] LABS: BASOPHILS % (AUTO) 0.2 % (0-1); EOSINOPHILS # (AUTO) 0.3 X10'3 (0-0.9); EOSINOPHILS % (AUTO) 1.6 % (0-6); HEMATOCRIT 28.1 % (35.0-45.0); HEMOGLOBIN 9.2 g/dl (12.0-16.0); LYMPHOCYTES # (AUTO) 2.3 X10'3 (1.1-4.8); LYMPHOCYTES % (AUTO) 14.7 % (21-51); MEAN CORPUSCULAR HGB CONC 32.6 % (33.0-36.5); MEAN CORPUSCULAR VOLUME 76.5 FL (78-98); MEAN PLATELET VOLUME 6.9 FL (7.4-10.4); MONOCYTES # (AUTO) 1.1 X10'3 (0-0.9); MONOCYTES % (AUTO) 6.7 % (2-12); NEUTROPHILS # (AUTO) 12.2 X10'3 (1.8-7.7); NEUTROPHILS % (AUTO) 76.8 % (42-75); PLATELET COUNT 370 X10'3 (140-440); RED BLOOD COUNT 3.67 X10'6 (4.20-5.60); RED CELL DISTRIBUTION WIDTH 24.6 % (11.5-14.5); WHITE BLOOD COUNT 15.9 X10'3 (4.5-11.0)
[2017-08-06 06:15] LABS: ALBUMIN 2.3 G/DL (3.4-5.0); ANION GAP 8 (8-16); BLOOD UREA NITROGEN 22 MG/DL (7-18); BUN/CREATININE RATIO 28.6 (6.6-38.0); CALCIUM 9.1 MG/DL (8.5-10.1); CHLORIDE 107 MMOL/L (99-107); CREATININE 0.77 MG/DL (0.40-0.90); GLUCOSE 81 MG/DL (70-104); MAGNESIUM 1.8 MG/DL (1.5-2.4); SODIUM 144 MMOL/L (135-145); TOTAL CARBON DIOXIDE 29.2 MMOL/L (24-32); eGFR 74 ML/MIN
[2017-08-06 07:00] VITALS: BP 152/73
[2017-08-06] MEDS: lactobacillus rhamnosus 10,000 MMU CELLS/CAPSULE PO SCH ×2 (07:38→20:31)
[2017-08-06] MEDS: triamterene/HCTZ 37.5/25mg tablet PO SCH (07:39)
[2017-08-06] MEDS: docusate sod 100mg capsule PO SCH ×2 (07:39→20:31)
[2017-08-06] MEDS: magnesium Cl slow-release 64mg tablet PO SCH ×2 (07:39→20:31)
[2017-08-06] MEDS: pantoprazole 40mg Tablet.DR PO SCH (07:40)
[2017-08-06] MEDS: potassium Cl 20 mEq SR tablet PO SCH ×2 (07:40→20:30)
[2017-08-06] MEDS: metoprolol succinate 25mg (24-HOUR) SR. Tablet PO SCH (07:41)
[2017-08-06] MEDS: K and/or MAG REPLACEMENT MC SCH (08:00)
[2017-08-06] MEDS: insulin Lispro (HumaLOG) vial - multi-dose SQ SCH ×2 (09:00→13:00)
[2017-08-06 11:00] VITALS: BP 118/71
[2017-08-06 15:00] VITALS: BP 136/63
[2017-08-06 19:00] VITALS: BP 142/86
[2017-08-06 22:00] VITALS: BP 153/74
[2017-08-07 02:00] VITALS: BP 134/67
[2017-08-07 05:25] LABS: BASOPHILS % (AUTO) 0.3 % (0-1); EOSINOPHILS # (AUTO) 0.4 X10'3 (0-0.9); EOSINOPHILS % (AUTO) 2.5 % (0-6); HEMATOCRIT 29.8 % (35.0-45.0); HEMOGLOBIN 9.6 g/dl (12.0-16.0); LYMPHOCYTES # (AUTO) 2.2 X10'3 (1.1-4.8); LYMPHOCYTES % (AUTO) 14.8 % (21-51); MEAN CORPUSCULAR HEMOGLOBIN 24.7 PG (27.0-31.0); MEAN CORPUSCULAR HGB CONC 32.2 % (33.0-36.5); MEAN CORPUSCULAR VOLUME 76.8 FL (78-98); MEAN PLATELET VOLUME 6.5 FL (7.4-10.4); MONOCYTES # (AUTO) 0.7 X10'3 (0-0.9); MONOCYTES % (AUTO) 4.9 % (2-12); NEUTROPHILS # (AUTO) 11.5 X10'3 (1.8-7.7); NEUTROPHILS % (AUTO) 77.5 % (42-75); PLATELET COUNT 417 X10'3 (140-440); RED BLOOD COUNT 3.88 X10'6 (4.20-5.60); RED CELL DISTRIBUTION WIDTH 25.6 % (11.5-14.5); WHITE BLOOD COUNT 14.8 X10'3 (4.5-11.0)
[2017-08-07 05:40] LABS: ALBUMIN 2.4 G/DL (3.4-5.0); ANION GAP 7 (8-16); BLOOD UREA NITROGEN 21 MG/DL (7-18); BUN/CREATININE RATIO 26.9 (6.6-38.0); CALCIUM 9.4 MG/DL (8.5-10.1); CHLORIDE 106 MMOL/L (99-107); CREATININE 0.78 MG/DL (0.40-0.90); GLUCOSE 94 MG/DL (70-104); MAGNESIUM 1.8 MG/DL (1.5-2.4); POTASSIUM 4.3 MMOL/L (3.5-5.1); SODIUM 143 MMOL/L (135-145); TOTAL CARBON DIOXIDE 29.7 MMOL/L (24-32); eGFR 73 ML/MIN
[2017-08-07 06:00] VITALS: BP 109/65
[2017-08-07 06:15] LABS: TOTAL CELLS COUNTED 100
[2017-08-07 06:16] LABS: ANISOCYTOSIS 3+; MICROCYTOSIS 1+; PLATELET ESTIMATE NORMAL
[2017-08-07] MEDS: potassium Cl 20 mEq SR tablet PO SCH (07:26)
[2017-08-07] MEDS: lactobacillus rhamnosus 10,000 MMU CELLS/CAPSULE PO SCH (07:26)
[2017-08-07] MEDS: docusate sod 100mg capsule PO SCH (07:26)
[2017-08-07] MEDS: magnesium Cl slow-release 64mg tablet PO SCH (07:28)
[2017-08-07] MEDS: pantoprazole 40mg Tablet.DR PO SCH (07:29)
[2017-08-07] MEDS: metoprolol succinate 25mg (24-HOUR) SR. Tablet PO SCH (07:30)
[2017-08-07] MEDS: triamterene/HCTZ 37.5/25mg tablet PO SCH (07:30)
[2017-08-07] MEDS: K and/or MAG REPLACEMENT MC SCH (07:34)
[2017-08-07] MEDS ORDERED: COL100C PO (10:42)
[2017-08-07] MEDS ORDERED: HYDR-3972 PO (10:42)
[2017-08-07 11:00] VITALS: BP 125/73
== END 2017-08-07 12:30 | disposition home or self-care (01) | DRG 228 ==
LOC: PCU 3S 16:47 → EDSTATUS 07-31 14:00 → PCU 3S 07-31 17:46 → PACU 08-03 07:29 → ICU 2S 08-03 09:13 → PCU 3S 08-05 09:21
PROVIDERS: ADMIT Family Medicine; ATTEND Thoracic Surgery (Cardiothoracic Vascular Surgery)
PROC: 4A023N8 Measurement of Cardiac Sampling and Pressure, Bilateral, Percutaneous Approach (ICD-10-PCS; 2017-07-31)
PROC: B2111ZZ Fluoroscopy of Multiple Coronary Arteries using Low Osmolar Contrast (ICD-10-PCS; 2017-07-31)
PROC: B2151ZZ Fluoroscopy of Left Heart using Low Osmolar Contrast (ICD-10-PCS; 2017-07-31)
PROC: B3101ZZ Fluoroscopy of Thoracic Aorta using Low Osmolar Contrast (ICD-10-PCS; 2017-07-31)
PROC: 5A1221Z Performance of Cardiac Output, Continuous (ICD-10-PCS; 2017-08-03)
PROC: B246ZZ4 Ultrasonography of Right and Left Heart, Transesophageal (ICD-10-PCS; 2017-08-03)
PROC: 02HV33Z Insertion of Infusion Device into Superior Vena Cava, Percutaneous Approach (ICD-10-PCS; 2017-08-03)
PROC: 02HQ32Z Insertion of Monitoring Device into Right Pulmonary Artery, Percutaneous Approach (ICD-10-PCS; 2017-08-03)
PROC: 4A133B3 Monitoring of Arterial Pressure, Pulmonary, Percutaneous Approach (ICD-10-PCS; 2017-08-03)
PROC: 4A1239Z Monitoring of Cardiac Output, Percutaneous Approach (ICD-10-PCS; 2017-08-03)
PROC: 02B70ZZ Excision of Left Atrium, Open Approach (ICD-10-PCS; principal; 2017-08-03 07:00)
DX: D15.1 Benign neoplasm of heart (principal); J18.9 Pneumonia, unspecified organism; I27.20 Pulmonary hypertension, unspecified; D72.829 Elevated white blood cell count, unspecified; R55 Syncope and collapse; E87.6 Hypokalemia; E78.00 Pure hypercholesterolemia, unspecified; E78.5 Hyperlipidemia, unspecified; I10 Essential (primary) hypertension; Z79.899 Other long term (current) drug therapy; Z87.891 Personal history of nicotine dependence; Z80.0 Family history of malignant neoplasm of digestive organs; Z82.3 Family history of stroke
CPT/HCPCS: 0232T; 93306; 93312; 93325; 93460; 93567; 36415; 36600; 71045; 80048; 80053; 81001; 82330; 82435; 82803; 82947; 82948; 83036; 83605; 83735; 83880; 84100; 84132; 84295; 85014; 85018; 85025; 85027; 85347; 85610; 85730; 86885; 86900; 86901; 86920; 87040; 87070; 93005; 93880; 94002; 94060; 94150; 94640; 94760; 97110; 97116; 97161; 97530; 99152; 99153; A4620; A6213; A6222; A6255; A6257; A6402; A6449; A7000; A7048; C1751; C1769; C9113; J0456; J0690; J0696; J1644; J1815; J2001; J2150; J2250; J2270; J2370; J2720; J2930; J3010; J3370; J3475; J3480; J3490; J7030; J7120; P9047; Q9967

== ENCOUNTER 2019-10-14 04:55 | Emergency (ER) | payer OTHER, SELFPAY ==
[~2019-10-14] VITALS: Ht 160 cm; Wt 74.0 kg
[~2019-10-14 04:55] MED LIST changes: +COL100C PO; +HYDR-3972 PO; -LIDOcaine 2% (20 mg/ml) 5ml cardiac syringe ONE; -MAGNESIUM SULFATE 4 MEQ/ML (1gm/2ml) injection ONE; +METO-384 PO; +TRIA1TAB3 PO; -albumin (human) 25% 100 ML IV solution IV ONE; -calcium chloride 100 MG/1 ML inj IV ONE; -heparin 1,000 units/ml 10ml inj ONE; -heparin 10,000 units/1 ML INJ ONE; -methylPREDNISolone sod. succ. 500mg inj ONE; -phenylephrine 10mg/ml inj IV ONE; -potassium acetate 2 mEq/1ml inj. IV ONE; -sodium bicarbonate (8.4%) 1 mEq/ml syringe ONE
[2019-10-14 05:01] VITALS: BP 174/98
--- NOTE | 2019-10-14 05:19 | NUR ---
pain to the hip for unknown reason x 2 day as constant even when trying to sleep.
[2019-10-14] MEDS ORDERED: ACET-3067 PO (05:22)
== END 2019-10-14 05:38 | disposition home or self-care (01) ==
LOC: ER 04:55
DX: M25.551 Pain in right hip (principal); Z79.899 Other long term (current) drug therapy
CPT/HCPCS: 73502; 99283